=== PATIENT | female | born 1970 | race Native Hawaiian/Other Pacific Islander ===

== ENCOUNTER 2016-10-23 06:13 | Day surgery (SDC) | payer OTHER ==
[2016-10-23 06:33] VITALS: BMI 26.4
[2016-10-23] MEDS ORDERED: Propofol 10 mg/ml Inj (20 ML) ONE (08:22)
[2016-10-23] MEDS ORDERED: Lidocaine Hydrochloride 5 ML INJ ONE (08:22)
--- NOTE | 2016-10-23 08:22 | CP.SDSHP ---
Same Day Surgery H & P - History Proposed Procedure: COLONSCOPY Pre-Op Diagnosis: SEE NOTES - Previous Medical/Surgical History Cardiac: Hypertension Misc: Other Pain: 4.Moderate Pain - Allergies Allergies: Allergies No Known Allergies Allergy (Verified 05/13/15 10:57) - Physical Exam General Appearance: N Vital Signs: Vital Signs 10/23/16 06:44 Temperature 98 F Pulse Rate 71 Respiratory 19 Rate Blood Pressure 114/71 O2 Sat by Pulse 99 Oximetry Mental Status: Alert & Oriented x3 Neuro: WNL Heart: Other Lungs: WNL GI: WNL - {Optional Preform as Required} Breast: WNL Abdomen: Other Rectal: Other Integument: WNL : WNL Ortho: WNL ENT: WNL - Impression Pt. Evaluated Today:Candidate for Anesthesia & Procedure: Yes - Date & Time Time: 08:22 Short Stay Discharge - Short Stay Discharge Admitting Diagnosis/Reason for Visit: RECTAL BLEEDING Disposition: HOME/ ROUTINE
[2016-10-23 08:51] VITALS: TEMP 97.8
[2016-10-23] MEDS ORDERED: Belladonna-Phenobarbital PO ONE (09:00)
[2016-10-23 09:30] VITALS: RESP 12; O2SAT 100
[2016-10-23 12:06] VITALS: BP 111/65; PULSE 72
== END 2016-10-23 09:40 | disposition home or self-care (01) ==
LOC: C.ENDO 06:13
PROVIDERS: ATTEND Specialist
DX: K60.2 Anal fissure, unspecified (principal); K62.5 Hemorrhage of anus and rectum; K64.8 Other hemorrhoids
CPT/HCPCS: 45380; 84703; 88305; J2704

== ENCOUNTER 2018-02-14 19:12 | Emergency (ER) | payer OTHER ==
[2018-02-14 19:13] VITALS: BMI 26.4
[2018-02-14 19:25] VITALS: TEMP 98.1
[2018-02-14] MEDS ORDERED: Sodium Chloride 0.9% 1,000 ML IV ONE (19:53)
--- NOTE | 2018-02-14 19:53 | C.PDOC ---
History Of Present Illness Patient presents to the ER after having a syncopal episode yesterday. Patient states she was waiting for the train when she syncopized, a person nearby noticed her pass out and hit her head. She woke up, went home, applied some ice but now today reports some dizziness. Denies chest pain, vision changes, nausea, vomiting, diarrhea, or weakness. Time Seen by Provider: 02/14/18 19:52 Chief Complaint (Nursing): Syncope History Per: Patient History/Exam Limitations: no limitations Onset/Duration Of Symptoms: Days (Yesterday) Current Symptoms Are (Timing): Still Present Number Of Syncopal Episodes: 1 Activity At Onset Of Symptoms: Standing Associated Symptoms Preceding Syncopal Episode: No Predromal Symptoms (Sudden Onset) Seizure Or Post-ictal Symptoms: None Possible Causative Factor(s): Other (Not known) Fall Associated With With Symptoms: Yes, Positive Injury Severity: Moderate Pain Scale Rating Of: 4 Recent travel outside of the [place]: No - Symptoms Of CVA Associated Symptoms: denies: Impaired Speech, Seizure Activity, New Vision Deficit(Left), New Vision Deficit(Right), Decreased Ability To Walk, New Confusion Recent Head Trauma: Yes Past Medical History Reviewed: Historical Data, Nursing Documentation, Vital Signs Vital Signs: Last Vital Signs Temp 98.1 F 02/14/18 19:19 Pulse 67 02/14/18 19:19 Resp 18 02/14/18 19:19 BP 146/94 H 02/14/18 19:19 Pulse Ox 99 02/14/18 19:19 - Medical History PMH: Anemia, Arthritis, HTN, Hypercholesterolemia (DIET CONTROLLED) Denies: Chronic Kidney Disease Surgical History: Endoscopy Family History: States: No Known Family Hx - Social History Hx Tobacco Use: No Hx Alcohol Use: Yes Hx Substance Use: No - Immunization History Hx Tetanus Toxoid Vaccination: Yes Hx Influenza Vaccination: Yes Hx Pneumococcal Vaccination: No Review Of Systems Constitutional: Negative for: Fever, Chills Eyes: Negative for: Vision Change Cardiovascular: Negative for: Chest Pain Respiratory: Negative for: Cough, Shortness of Breath Gastrointestinal: Negative for: Nausea, Vomiting, Diarrhea Neurological: Positive for: Dizziness, Other (Syncope). Negative for: Weakness Physical Exam - Physical Exam Appears: Non-toxic Skin: Warm, Dry Head: Normacephalic Eye(s): bilateral: Normal Inspection, PERRL, EOMI Oral Mucosa: Moist Neck: Trachea Midline, No Midline Cervical Tenderness, No Paracervical Tendernes s, Supple Chest: Symmetrical, No Tenderness Cardiovascular: Rhythm Regular Respiratory: No Rales, No Rhonchi, No Wheezing Gastrointestinal/Abdominal: Soft, No Tenderness Back: No Vertebral Tenderness, No Paraspinal Tenderness Extremity: Other (Moves all extremities) Neurological/Psych: Oriented x3 ED Course And Treatment - Laboratory Results Result Diagrams: 02/14/18 20:35 02/14/18 20:35 ECG: Interpreted By Me, Viewed By Me ECG Rhythm: Sinus Rhythm (69), Nonspecific Changes O2 Sat by Pulse Oximetry: 99 (Room air) Pulse Ox Interpretation: Normal - Radiology CXR: Interpreted by Me, Viewed By Me Progress Note: CT head, blood work, EKG, and urinalysis ordered. IV fluids administered. Reevaluation Time: 21:40 Reassessment Condition: Improved Medical Decision Making Medical Decision Making: Upon provider reevaluation patient is feeling better, is medically stable, and requires no further treatment in the ED at this time. Patient will be discharged home . Counseling was provided and all questions were answered regarding diagnosis and need for follow up with dr mendiola. There is agreement to discharge plan. Return if symptoms persist or worsen. Disposition Counseled Patient/Family Regarding: Studies Performed, Diagnosis, Need For Followup, Rx Given - Disposition Referrals: Ariela Mendiola MD [Primary Care Provider] - Disposition: HOME/ ROUTINE Disposition Time: 19:53 Condition: FAIR Additional Instructions: Please return if symptoms recur Instructions: Syncope (Fainting), Syncope (Fainting) (DC) Forms: [employer] ([place]) - Clinical Impression Clinical Impression: Dizziness, Syncope - Scribe Statement The provider has reviewed the documentation as recorded by the Scribe Derick Hinds All medical record entries made by the Scribe were at my direction and personally dictated by me. I have reviewed the chart and agree that the record accurately reflects my personal performance of the history, physical exam, medical decision making, and the department course for this patient. I have also personally directed, reviewed, and agree with the discharge instructions and disposition.
[2018-02-14] MEDS ORDERED: Sodium Chloride 0.9% 1,000 ML ONE (20:15)
[2018-02-14 20:41] LABS: BASO # 0.1 K/uL (0.0-0.2); BASO % 1.4 % (0.0-2.0); EOS # 0.2 K/uL (0.0-0.7); EOS % 3.6 % (0.0-4.0); HEMOGLOBIN 12.9 g/dL (11.0-16.0); LYMPH # 2.6 K/uL (1.0-4.3); MEAN CELL VOLUME 92.2 fL (81.0-99.0); MEAN CORPUSCULAR HEMOGLOBIN 31.1 pg (27.0-31.0); MEAN CORPUSCULAR HGB CONC 33.7 g/dL (33.0-37.0); MEAN PLATELET VOLUME 8.5 fL (7.2-11.7); MONO # 0.6 K/uL (0.0-0.8); NEUT # 2.8 K/uL (1.8-7.0); NRBC % 0.1 % (0.0-2.0); RBC 4.15 Mil/uL (3.80-5.20); RED CELL DISTRIBUTION WIDTH 13.3 % (11.5-14.5); WHITE BLOOD COUNT 6.4 K/uL (4.8-10.8)
[2018-02-14 20:46] LABS: HCG,QUALITATIVE URINE NEGATIVE (NEGATIVE); INR 1.1; PROTHROMBIN TIME 12.4 SECONDS (9.7-12.2)
[2018-02-14 20:55] LABS: ALB/GLOB RATIO 1.4 (1.0-2.1); ALBUMIN 4.5 g/dL (3.5-5.0); ALT/SGPT 25 U/L (9-52); AST/SGOT 36 U/L (14-36); BLOOD UREA NITROGEN 12 mg/dL (7-17); CALCIUM 9.2 mg/dl (8.6-10.4); GFR NON-AFRICAN AMERICAN > 60
[2018-02-14 20:59] LABS: BARBITURATES, UR NEGATIVE (NEGATIVE); BENZODIAZEPINES, UR NEGATIVE (NEGATIVE); OPIATES, UR NEGATIVE (NEGATIVE); PHENCYCLIDINE, UR NEGATIVE (NEGATIVE)
[2018-02-14 21:04] LABS: SQUAMOUS EPITHIAL 2 /hpf (0-5); URINE BACTERIA OCC (<OCC); URINE BILIRUBIN NEGATIVE (NEGATIVE); URINE BLOOD NEGATIVE (NEGATIVE); URINE CLARITY Clear (Clear); URINE COLOR Straw (YELLOW); URINE GLUCOSE (UA) NORMAL (Normal); URINE PROTEIN NEGATIVE (NEGATIVE); URINE UROBILINOGEN NORMAL mg/dL (0.2-1.0)
[2018-02-14 21:10] LABS: URINE LEUKOCYTE ESTERASE 1+ Leu/uL (Negative)
[2018-02-14 21:12] VITALS: BP 151/88; PULSE 61; RESP 13
[2018-02-14 21:42] VITALS: O2SAT 99
--- NOTE | 2018-02-15 08:09 | CT ---
Date of service: 02/14/2018 PROCEDURE: CT HEAD WITHOUT CONTRAST. HISTORY: Syncope COMPARISON: 07/31/2013. TECHNIQUE: Axial computed tomography images were obtained through the head/brain without intravenous contrast. Radiation dose: Total exam DLP = 1017.7 mGy-cm. This CT exam was performed using one or more of the following dose reduction techniques: Automated exposure control, adjustment of the mA and/or kV according to patient size, and/or use of iterative reconstruction technique. FINDINGS: HEMORRHAGE: No intracranial hemorrhage. BRAIN: Galvez-white matter differentiation is preserved. There is no mass, mass effect or abnormal extra-axial fluid collection. There is no territorial infarction. The midline sagittal structures are normal. VENTRICLES: The ventricles are normal in size, shape and configuration. There is a cavum septum pellucidum. CALVARIUM: There is no calvarial fracture or extracranial soft tissue swelling. PARANASAL SINUSES: There fluid in the left maxillary and sphenoid sinuses. The remaining included paranasal sinuses are clear. MASTOID AIR CELLS: Predominantly clear. OTHER FINDINGS: None. IMPRESSION: No acute intracranial abnormality. Acute and/or chronic left maxillary and sphenoid sinusitis. A preliminary report was provided by [employer]
--- NOTE | 2018-02-18 19:08 | CARD ---
APPROVED REPORT Date of service: 02/14/2018 EKG Measurement Heart [id number] CT 200P63 [id number] <Conclusion> Normal sinus rhythm Possible Left atrial enlargement Borderline ECG
== END 2018-02-14 22:04 | disposition home or self-care (01) ==
LOC: C.ER 19:12 → SUPCPDRO 19:12 → C.ER 22:04
DX: R42 Dizziness and giddiness (principal); R55 Syncope and collapse
CPT/HCPCS: 70450; 80053; 80324; 80345; 80346; 80349; 80353; 80358; 80361; 81001; 83992; 84484; 84703; 85025; 85610; 85730; 93005; 96360; 99285; J7030

== ENCOUNTER 2018-03-27 09:09 | Outpatient (CLI) | payer OTHER | END 2018-03-27 09:10 | disposition home or self-care (01) | LOC: C.MAMMO 09:09 ==